=== PATIENT | female | born 1970 | race Caucasian/White ===

== ENCOUNTER 2019-01-23 20:54 | Emergency (ER) | payer OTHER ==
[2019-01-23 21:02] VITALS: BMI 37.0
[2019-01-23] MEDS ORDERED: SODIUM CHLORIDE 1,000 ML IV STA (22:07)
[2019-01-23] MEDS ORDERED: FAMOTIDINE 20 MG/50 ML IVPB 20 MG/50 ML MG IVPB ONE ×2 (22:07→22:28)
[2019-01-23] MEDS ORDERED: ONDANSETRON 4 MG/2 ML VIAL IVPUSH ONE (22:07)
[2019-01-23] MEDS ORDERED: ONDANSETRON 4 MG/2 ML VIAL ONE (22:28)
[2019-01-23 22:40] LABS: BASO % 0.7 % (0-2.0); EOS % 0.9 % (0-4.5); HEMATOCRIT 44.2 % (32.4-45.2); HEMOGLOBIN 14.9 GM/dL (10.7-15.3); LYMPH % 11.1 % (8-40); MCH 28.7 pg (25.7-33.7); MCHC 33.8 g/dl (32.0-36.0); MEAN CELL VOLUME 85.1 fl (80-96); MEAN PLT VOLUME 8.8 fl (7.5-11.1); MONO % 7.2 % (3.8-10.2); NEUT % 80.1 % (42.8-82.8); PLATELET COUNT 310 K/MM3 (134-434); RDW 13.3 % (11.6-15.6); WHITE BLOOD COUNT 9.1 K/mm3 (4.0-10.0)
[2019-01-23 22:54] LABS: MAGNESIUM 1.9 mg/dL (1.8-2.4)
[2019-01-23 23:09] LABS: ALBUMIN 3.6 g/dl (3.4-5.0); BILIRUBIN,TOTAL 0.9 mg/dL (0.2-1); BLOOD UREA NITROGEN 9.6 mg/dL (7-18); CALCIUM 9.2 mg/dL (8.5-10.1); CREATININE 0.8 mg/dL (0.55-1.3); POTASSIUM 4.2 mmol/L (3.5-5.1); TOT PROT 7.7 g/dl (6.4-8.2)
[2019-01-23 23:28] VITALS: BP 105/67; PULSE 99; TEMP 99
--- NOTE | 2019-01-24 00:14 | PDOC ---
History of Present Illness - General Chief Complaint: Nausea/Vomiting Stated Complaint: VOMITING Time Seen by Provider: 01/23/19 21:05 History Source: Patient Exam Limitations: Language Barrier Past History - Past Medical History Allergies/Adverse Reactions: Allergies Allergy/AdvReac Type Severity Reaction Status Date / Time No Known Allergies Allergy Verified 01/23/19 20:58 COPD: No - Psycho Social/Smoking Cessation Hx Smoking History: Never smoked *Physical Exam - Vital Signs Last Vital Signs Temp Pulse Resp BP Pulse Ox 99.0 F 99 H 22 H 105/67 100 01/23/19 23:28 01/23/19 23:28 01/23/19 21:00 01/23/19 23:28 01/23/19 23:28 - Physical Exam General Appearance: No: Apparent Distress Neck: positive: Supple Respiratory/Chest: positive: Lungs Clear, Normal Breath Sounds. negative: Respiratory Distress Cardiovascular: positive: Regular Rhythm, Regular Rate, S1, S2. negative: Murmur Gastrointestinal/Abdominal: positive: Tender (mild along epigastric region), Soft. negative: Distended, Guarding, Rebound, Hernia, Mass Musculoskeletal: negative: CVA Tenderness Integumentary: positive: Normal Color Neurologic: positive: Alert ED Treatment Course - LABORATORY CBC & Chemistry Diagram: 01/23/19 22:30 01/23/19 22:30 - ADDITIONAL ORDERS Additional order review: Laboratory Results 01/23/19 01/23/19 01/23/19 22:30 22:30 22:30 Sodium 138 Potassium 4.2 Chloride 104 Carbon Dioxide 27 Anion Gap 7 L BUN 9.6 Creatinine 0.8 Est GFR (CKD-EPI)AfAm 102.47 Est GFR (CKD-EPI)NonAf 88.41 Random Glucose 108 H Calcium 9.2 Magnesium 1.9 Total Bilirubin 0.9 AST 55 H ALT 81 H Alkaline Phosphatase 84 Total Protein 7.7 Albumin 3.6 Lipase 80 Serum , Qual Negative 01/23/19 22:30 RBC 5.20 MCV 85.1 MCHC 33.8 RDW 13.3 MPV 8.8 Neutrophils % 80.1 Lymphocytes % 11.1 Monocytes % 7.2 Eosinophils % 0.9 Basophils % 0.7 - Medications Given in the ED: ED Medications Discontinued Medications Generic Name Dose Route Start Last Admin Trade Name Freq PRN Reason Stop Dose Admin Famotidine/Sodium Chloride 20 mg in 50 mls @ 100 mls/hr 01/23/19 22:07 22:42 Pepcid 20 Mg Premixed Ivpb - IVPB 01/23/19 22:36 100 mls/hr ONCE ONE Administration Sodium Chloride 1,000 mls @ 1,000 mls/hr 01/23/19 22:07 01/23/19 22:42 Normal Saline - IV 01/23/19 23:06 1,000 mls/hr ASDIR STA Administration Ondansetron HCl 4 mg 01/23/19 22:07 01/23/19 22:42 Zofran Injection IVPUSH 01/23/19 22:08 4 mg ONCE ONE Administration Medical Decision Making - Medical Decision Making 48 y/o F hx of cholecystectomy 2 years ago, no other medical problems, presents with NBNB emesis x 3 along with watery diarrhea today. +chills. Denies fever, sob, cp, urinary sxs. Denies possibly eating any bad food, use of antibiotics, recent travel. labs reviewed with slightly elevated liver enzymes, rest unremarkable patient mentions possible fatty liver patient was given IVF, Pepcid and Zofran and feeling much better on reassessment Patient passed po challenge stable for dc 01/24/19 00:09 Discharge - Discharge Information Problems reviewed: Yes Clinical Impression/Diagnosis: Gastroenteritis Condition: Improved Disposition: HOME - Admission No - Additional Discharge Information Prescription Drug Monitoring Program (I-STOP) results: I-STOP not reviewed - Follow up/Referral Referrals: Dayan Dsouza [Primary Care Provider] - 2 Days - Patient Discharge Instructions Patient Printed Discharge Instructions: DI for Viral Gastroenteritis -- Adult Additional Instructions: Thank you for choosing [facility]. It was a pleasure taking care of you. Recommend drinking at least 2-3L of water daily Eat light food like bananas, rice, applesauce, toast until feeling better Follow-up with your doctor in 2 days Return to the Emergency Department if your symptoms worsen or persist, you have fever, unable to keep down liquids or other concerning symptoms. Pretty por elegir el [facility]. Fue un placer cuidar de ti. Se recomienda beber al menos 2-3 litros de agua al da. Coma alimentos ligeros christopher pltanos, arroz, pur de manzana, tostadas hasta sentirse mejor Seguimiento con conrad mdico en 2 selby. Regrese al departamento de emergencias si dmitry sntomas empeoran o persisten, tiene fiebre, no puede retener lquidos u otros sntomas preocupantes. Print Language: KINYARWANDA - Post Discharge Activity
--- NOTE | 2019-01-24 02:40 | PDOC ---
*Physical Exam - Vital Signs Last Vital Signs Temp Pulse Resp BP Pulse Ox 99.0 F 99 H 22 H 105/67 100 01/23/19 23:28 01/23/19 23:28 01/23/19 21:00 01/23/19 23:28 01/23/19 23:28 ED Treatment Course - LABORATORY CBC & Chemistry Diagram: 01/23/19 22:30 01/23/19 22:30 - ADDITIONAL ORDERS Additional order review: Laboratory Results 01/23/19 01/23/19 01/23/19 22:30 22:30 22:30 Sodium 138 Potassium 4.2 Chloride 104 Carbon Dioxide 27 Anion Gap 7 L BUN 9.6 Creatinine 0.8 Est GFR (CKD-EPI)AfAm 102.47 Est GFR (CKD-EPI)NonAf 88.41 Random Glucose 108 H Calcium 9.2 Magnesium 1.9 Total Bilirubin 0.9 AST 55 H ALT 81 H Alkaline Phosphatase 84 Total Protein 7.7 Albumin 3.6 Lipase 80 Serum , Qual Negative 01/23/19 22:30 RBC 5.20 MCV 85.1 MCHC 33.8 RDW 13.3 MPV 8.8 Neutrophils % 80.1 Lymphocytes % 11.1 Monocytes % 7.2 Eosinophils % 0.9 Basophils % 0.7 - Medications Given in the ED: ED Medications Discontinued Medications Generic Name Dose Route Start Last Admin Trade Name Maximeq PRN Reason Stop Dose Admin Famotidine/Sodium Chloride 20 mg in 50 mls @ 100 mls/hr 01/23/19 22:07 22:42 Pepcid 20 Mg Premixed Ivpb - IVPB 01/23/19 22:36 100 mls/hr ONCE ONE Administration Sodium Chloride 1,000 mls @ 1,000 mls/hr 01/23/19 22:07 01/23/19 22:42 Normal Saline - IV 01/23/19 23:06 1,000 mls/hr ASDIR STA Administration Ondansetron HCl 4 mg 01/23/19 22:07 01/23/19 22:42 Zofran Injection IVPUSH 01/23/19 22:08 4 mg ONCE ONE Administration Medical Decision Making - Medical Decision Making 01/24/19 02:40 Case reviewed, agree with assessment and plan Discharge - Discharge Information Problems reviewed: Yes Clinical Impression/Diagnosis: Gastroenteritis Condition: Improved Disposition: HOME - Follow up/Referral Referrals: Medvedovsky,Mihail [Primary Care Provider] - 2 Days - Patient Discharge Instructions Patient Printed Discharge Instructions: DI for Viral Gastroenteritis -- Adult Additional Instructions: Thank you for choosing [facility]. It was a pleasure taking care of you. Recommend drinking at least 2-3L of water daily Eat light food like bananas, rice, applesauce, toast until feeling better Follow-up with your doctor in 2 days Return to the Emergency Department if your symptoms worsen or persist, you have fever, unable to keep down liquids or other concerning symptoms. Pretty por elegir el [facility]. Fue un placer cuidar de ti. Se recomienda beber al menos 2-3 litros de agua al da. Coma alimentos ligeros christopher pltanos, arroz, pur de manzana, tostadas hasta sentirse mejor Seguimiento con conrad mdico en 2 selby. Regrese al departamento de emergencias si dmitry sntomas empeoran o persisten, tiene fiebre, no puede retener lquidos u otros sntomas preocupantes. Print Language: LAO - Post Discharge Activity
== END 2019-01-24 00:34 | disposition home or self-care (01) ==
LOC: JER 20:54
PROC: 3E033GC Introduction of Other Therapeutic Substance into Peripheral Vein, Percutaneous Approach (ICD-10-PCS; principal; 2019-01-23)
DX: K52.9 Noninfective gastroenteritis and colitis, unspecified (principal); K92.9 Disease of digestive system, unspecified
CPT/HCPCS: 36415; 80053; 83690; 83735; 84703; 85025; 99282-25; J7030